=== PATIENT | male | born 1955 | race African-American/Black ===

== ENCOUNTER 2021-08-05 12:23 | Emergency (ER) | payer OTHER, MEDICAID ==
[~2021-08-05] VITALS: Ht 182.9 cm; Wt 84.0 kg
[2021-08-05 14:21] LABS: BASOPHILS % 0.4 % (0.0-2.0); EOSINOPHILS % 1.5 % (0.0-5.0); HEMATOCRIT. 43.5 % (42.0-52.0); HEMOGLOBIN. 14.3 g/dL (14.0-18.0); LYMPHOCYTES % 26.5 % (20.0-50.0); MEAN CORPUSCULAR VOLUME 81.8 fL (80.0-94.0); MEAN PLATELET VOLUME 7.5 fl (7.4-10.4); MONOCYTES % 9.7 % (2.0-8.0); NEUTROPHILS % 61.9 % (40.0-76.0); PLATELET 229 x1000/uL (130-400); RED BLOOD CELL COUNT 5.32 mill/uL (4.7-6.1); RED CELL DISTRIBUTION WIDTH 14.9 % (11.6-14.6)
[2021-08-05 14:31] LABS: CHLORIDE 106 mEq/L (98-107)
[2021-08-05 14:36] LABS: ETHANOL BLOOD < 10 mg/dL
[2021-08-05 14:41] LABS: CREATINE KINASE 283 IU/L (39-308)
[2021-08-05 14:52] LABS: CLARITY URINE CLEAR (CLEAR); COLOR URINE YELLOW (YELLOW); KETONES URINE NEGATIVE (NEGATIVE); LEUKOCYTE ESTERASE URINE NEGATIVE (NEGATIVE); NITRITE URINE NEGATIVE (NEGATIVE); OCCULT BLOOD URINE NEGATIVE (NEGATIVE); PH URINE 7.5 (4.5-8.0); PROTEIN URINE NEGATIVE (NEGATIVE); SPECIFIC GRAVITY URINE 1.005 (1.005-1.030); UROBILINOGEN URINE 0.2 E.U./dL (0.2-1.0)
[2021-08-05] MEDS ORDERED: HYDRALAZINE 20MG/ML VIAL IV ONE (18:00)
[2021-08-05 20:00] VITALS: BP 126/76
== END 2021-08-05 20:26 | disposition short-term general hospital (02) ==
LOC: ER 12:23
DX: R55 Syncope and collapse (principal); R51.9 Headache, unspecified; I11.0 Hypertensive heart disease with heart failure; I50.9 Heart failure, unspecified; E78.00 Pure hypercholesterolemia, unspecified
CPT/HCPCS: 36415; 70450; 71045; 80053; 80320; 81003; 82550; 83605; 83880; 84443; 84484; 85025; 93005; 96374; 99285; J0360; G0480